=== PATIENT | female | born 1945 | race Caucasian/White ===

== ENCOUNTER 2017-09-02 22:13 | Emergency (ER) | payer OTHER ==
[2017-09-03] MEDS ORDERED: IBUPROFEN 400 MG TAB ONE (00:06)
[2017-09-03] MEDS ORDERED: ALBUTEROL 2.5 MG/3 ML NEB SOL ONE (00:06)
[2017-09-03] MEDS ORDERED: ACETAMINOPHEN 500 MG TAB ONE (00:06)
[2017-09-03] MEDS ORDERED: IBUPROFEN 200 MG TAB PO ONE (00:06)
[2017-09-03 01:10] LABS: Absolute Lymphocytes (CBC) 2.3 K/uL (0.7-4.9); Absolute Monocytes 0.6 K/uL (0.1-1.3); Absolute Neutrophil 7.3 K/uL (1.8-8.0); Basophils % 0.5 % (0-1.3); Eosinophils % 1.7 % (0-4.4); Hematocrit 40.5 % (36.0-45.0); Lymphocytes % 21.8 % (15.3-44.8); MCH 29.7 pg (27.0-35.0); MCV 90.3 fL (80-100); MPV 9.2 fL (7.6-11.3); Monocytes % 5.6 % (3.3-12.3); RBC Red Blood Cell Count 4.49 M/uL (3.86-4.86)
[2017-09-03 01:20] LABS: Potassium 3.8 mmol/L (3.5-5.1)
--- NOTE | 2017-09-03 02:49 | EDPHYS ---
Physician Documentation [facility] Name: Su Schaeffer Age: 71 yrs Sex: Female : 1945 Arrival Date: 09/02/2017 Time: 22:17 Bed 17 Private MD: Segun Potts ED Physician Davi Jack HPI: 09/03 11:27 This 71 yrs old Unknown Female presents to ER via Ambulatory with complaints of Fall wa Injury. 11:27 Details of fall: The patient fell from a height. Onset: The symptoms/episode wa began/occurred just prior to arrival. Associated injuries: The patient sustained injury to the head, R wrist and tailbone. Severity of symptoms: At their worst the symptoms were moderate, in the emergency department the symptoms are unchanged. The patient has not experienced similar symptoms in the past. The patient has not recently seen a physician. states felt a bit woozy when hit head with associated nausea. admit to mild BAR since then. Historical: - Allergies: 09/02 22:46 PENICILLINS; fc 22:46 Erythromycin; fc 22:46 hydrocodone; fc 22:46 Ultram; fc - Home Meds: 22:46 Tylenol-Codeine #4 300-60 mg Oral tab 1 tab as needed [Active]; Celebrex 200 mg Oral fc cap 1 cap once daily [Active]; Flexeril 5 mg Oral tab 1 tab as needed [Active]; lisinopril 10 mg Oral tab 1 tab once daily [Active]; - PMHx: 22:46 pain to both feet; Hypertension; fc - PSHx: 22:46 foot surg; fc - Immunization history:: Last tetanus immunization: < 10 years ago. - Social history:: Smoking status: Patient/guardian denies using tobacco. - Ebola Screening: : Patient negative for fever greater than or equal to 101.5 degrees Fahrenheit, and additional compatible Ebola Virus Disease symptoms Patient denies exposure to infectious person Patient denies travel to an Ebola-affected area in the 21 days before illness onset. - Family history:: not pertinent. - Hospitalizations: : No recent hospitalization is reported. ROS: 09/03 11:31 Constitutional: Negative for fever, chills, and weight loss, Eyes: Negative for injury, wa pain, redness, and discharge, ENT: Negative for injury, pain, and discharge, Cardiovascular: Negative for chest pain, palpitations, and edema, Respiratory: Negative for shortness of breath, cough, wheezing, and pleuritic chest pain, Abdomen/GI: Negative for abdominal pain, nausea, vomiting, diarrhea, and constipation, Skin: Negative for injury, rash, and discoloration, Neuro: Negative for headache, weakness, numbness, tingling, and seizure. Neck: Positive for pain with movement. Back: Positive for pain at rest, of the sacrum. MS/extremity: Positive for pain, swelling, tenderness, of the right wrist. All other systems are negative. Exam: 11:28 Constitutional: This is a well developed, well nourished patient who is awake, alert, wa and in no acute distress. Eyes: Pupils equal round and reactive to light, extra-ocular motions intact. Lids and lashes normal. Conjunctiva and sclera are non-icteric and not injected. Cornea within normal limits. Periorbital areas with no swelling, redness, or edema. ENT: Nares patent. No nasal discharge, no septal abnormalities noted. Tympanic membranes are normal and external auditory canals are clear. Oropharynx with no redness, swelling, or masses, exudates, or evidence of obstruction, uvula midline. Mucous membranes moist. Chest/axilla: Normal chest wall appearance and motion. Nontender with no deformity. No lesions are appreciated. Cardiovascular: Regular rate and rhythm with a normal S1 and S2. No gallops, murmurs, or rubs. Normal PMI, no JVD. No pulse deficits. Respiratory: Lungs have equal breath sounds bilaterally, clear to auscultation and percussion. No rales, rhonchi or wheezes noted. No increased work of breathing, no retractions or nasal flaring. Abdomen/GI: Soft, non-tender, with normal bowel sounds. No distension or tympany. No guarding or rebound. No evidence of tenderness throughout. Skin: Warm, dry with normal turgor. Normal color with no rashes, no lesions, and no evidence of cellulitis. Neuro: Awake and alert, GCS 15, oriented to person, place, time, and situation. Cranial nerves II-XII grossly intact. Motor strength 5/5 in all extremities. Sensory grossly intact. Cerebellar exam normal. Normal gait. Psych: Awake, alert, with orientation to person, place and time. Behavior, mood, and affect are within normal limits. 11:28 Head/face: Noted is swelling, tenderness, that is mild, of the posterior head. 11:28 Neck: External neck: is normal, Trachea: is midline with no obvious abnormalities, ROM/movement: is normal, mild diffuse tenderness. no step-offs. 11:28 Back: pain, that is moderate, of the sacrum, ROM is normal. 11:28 Musculoskeletal/extremity: Extremities: swelling, tenderness, R wrist. Vital Signs: 09/02 22:46 BP 148 / 77; Pulse 100; Resp 20; Temp 98.8(O); Pulse Ox 98% on R/A; Weight 81.65 kg fc (R); Height 5 ft. 6 in. (167.64 cm) (R); Pain 8/10; 23:46 BP 135 / 83; Pulse 90; Resp 17; Pulse Ox 100% on R/A; bs1 09/03 00:46 BP 128 / 88; Pulse 80; Resp 16; Pulse Ox 99% on R/A; bs1 01:46 BP 113 / 67; Pulse 81; Resp 16; Pulse Ox 100% on R/A; bs1 02:46 BP 136 / 82; Pulse 80; Resp 17; Temp 98(O); Pulse Ox 100% on R/A; Pain 0/10; bs1 09/02 22:46 Body Mass Index 29.05 (81.65 kg, 167.64 cm) fc MDM: 09/02 23:40 Patient medically screened. mi 09/03 11:32 Differential diagnosis: closed head injury, contusion, fracture, multiple trauma, wa sprain, strain. Data reviewed: vital signs, nurses notes, radiologic studies. Test interpretation: by ED physician or midlevel provider: head and c-spine CT neg. pelvic xray negative. CXR neg. R wrist xray: positive for distal radius fx. Response to treatment: the patient's symptoms have markedly improved after treatment. ED course: of note pt c/o cough x 2 weeks that is worsening. nebs given. CXR nml. given inhaler, steroid burst and z-pack. 09/02 23:55 Order name: Basic Metabolic Panel; Complete Time: 02:43 mi 09/02 23:55 Order name: CBC with Diff; Complete Time: 02:43 mi 09/02 22:50 Order name: Forearm Right XRAY fc 09/02 23:55 Order name: CT Head C Spine mi 09/02 23:55 Order name: Creatinine for Radiology; Complete Time: 02:43 mi 09/02 23:55 Order name: Type And Screen; Complete Time: 02:43 mi 09/02 23:55 Order name: XRAY Pelvis mi 09/02 23:55 Order name: XRAY Chest (1 view) mi 09/02 23:55 Order name: Labs collected and sent; Complete Time: 01:00 mi 09/02 23:55 Order name: Splint - Sugar Tong - Forearm: R; Complete Time: 00:16 mi Administered Medications: 00:09 Drug: Motrin 600 mg Route: PO; bs1 00:50 Follow up: Response: No adverse reaction bs1 00:09 Drug: Tylenol 1000 mg Route: PO; bs1 00:50 Follow up: Response: No adverse reaction bs1 00:09 Drug: Albuterol 2.5 mg Route: Inhalation; bs1 Disposition: 09/03/17 02:48 Discharged to Home. Impression: Right Distal Radius Fracture, Acute Bronchitis, Tail bone sprain. - Condition is Stable. - Discharge Instructions: Acute Bronchitis, [id number], Wrist Fracture, [id number]. - Prescriptions for Cipro 500 mg Oral Tablet - take 1 tablet by ORAL route every 12 hours for 5 days; 10 tablet. Prednisone 20 mg Oral Tablet - take 2 tablet by ORAL route once daily for 5 days; 10 tablet. Albuterol Sulfate 90 mcg/actuation - inhale 1-2 puff by INHALATION route every 4-6 hours; 1 Inhaler. Ibuprofen 600 mg Oral Tablet - take 1 tablet by ORAL route every 8 hours As needed take with food; 30 tablet. - Medication Reconciliation Form, Thank You Letter, Antibiotic Education, Prescription Opioid Use form. - Follow up: Esteban Campbell MD; When: 5 - 6 days; Reason: Re-evaluation by your physician. - Problem is new. - Symptoms have improved. - Notes: follow up with the orhtopedic surgeon for further treatment of your wrist fracture Signatures: Dispatcher [employer] Eileen Shell RN RN Davi Jack MD MD wa Salazar, Brittany RN RN bs1 Corrections: (The following items were deleted from the chart) 03:39 02:48 09/03/2017 02:48 Discharged to Home. Impression: Right Distal Radius Fracture; bs1 Acute Bronchitis; Tail bone sprain. Condition is Stable. Forms are Medication Reconciliation Form, Thank You Letter, Antibiotic Education, Prescription Opioid Use. Follow up: Esteban Campbell; When: 5 - 6 days; Reason: Re-evaluation by your physician. Problem is new. Symptoms have improved. wa
--- NOTE | 2017-09-03 02:49 | ER ---
Nurse's Notes [facility] Name: Su Schaeffer Age: 71 yrs Sex: Female : 1945 Arrival Date: 09/02/2017 Time: 22:17 Bed 17 Private MD: Segun Potts Diagnosis: Right Distal Radius Fracture;Acute Bronchitis;Tail bone sprain Presentation: 09/02 22:40 Presenting complaint: Patient states: that there was a slick spot on the floor and she fc slipped. When she did she hit her head on table, tailbone and right arm. At the time was somewhat confused and nausea. Denies any LOC. Care prior to arrival: None. Mechanism of Injury: Fall from standing position. Trauma event details: [facility], Injury occurred: at home. Injury occurred: September 02, 2017 Injury occurred at: 21:30. 22:40 Acuity: WILL 3 fc 22:40 Method Of Arrival: Ambulatory fc 22:42 Transition of care: patient was not received from another setting of care. Onset of fc symptoms was September 02, 2017 at 21:30. Risk Assessment: Do you want to hurt yourself or someone else? Patient reports no desire to harm self or others. 09/03 03:38 Initial Sepsis Screen: Does the patient meet any 2 criteria? No. Patient's initial bs1 sepsis screen is negative. Does the patient have a suspected source of infection? No. Patient's initial sepsis screen is negative. Triage Assessment: 09/02 22:50 General: Appears uncomfortable, well groomed, Behavior is calm, cooperative, fc appropriate for age. Pain: Complains of pain in buttocks, right arm and neck Pain currently is 8 out of 10 on a pain scale. Quality of pain is described as aching, dull, Pain began suddenly, Is continuous, Aggravated by increased activity, repositioning, weight bearing. EENT: No deficits noted. 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 Cardiovascular: No deficits noted. Respiratory: No deficits noted. GI: No deficits noted. : No deficits noted. Derm: Skin is pink, warm \\T\\ dry. Musculoskeletal: Capillary refill < 3 seconds, Range of motion: limited in right elbow and right wrist Reports pain in buttocks and right arm. Historical: - Allergies: 22:46 PENICILLINS; fc 22:46 Erythromycin; fc 22:46 hydrocodone; fc 22:46 Ultram; fc - Home Meds: 22:46 Tylenol-Codeine #4 300-60 mg Oral tab 1 tab as needed [Active]; Celebrex 200 mg Oral fc cap 1 cap once daily [Active]; Flexeril 5 mg Oral tab 1 tab as needed [Active]; lisinopril 10 mg Oral tab 1 tab once daily [Active]; - PMHx: 22:46 pain to both feet; Hypertension; fc - PSHx: 22:46 foot surg; fc - Immunization history:: Last tetanus immunization: < 10 years ago. - Social history:: Smoking status: Patient/guardian denies using tobacco. - Ebola Screening: : Patient negative for fever greater than or equal to 101.5 degrees Fahrenheit, and additional compatible Ebola Virus Disease symptoms Patient denies exposure to infectious person Patient denies travel to an Ebola-affected area in the 21 days before illness onset. - Family history:: not pertinent. - Hospitalizations: : No recent hospitalization is reported. Screenin:51 Abuse screen: Denies threats or abuse. Nutritional screening: No deficits noted. Tuberculosis screening: No symptoms or risk factors identified. Fall Risk Fall in past 12 months (25 points). No secondary diagnosis (0 pts). No IV (0 pts). Ambulatory Aid- None/Bed Rest/Nurse Assist (0 pts). Gait- Weak (10 pts.). Mental Status- Overestimates/Forgets Limitations (15 pts.). Total Sauer Fall Scale indicates Low Risk Score (25-44 pts). Fall prevention measures have been instituted. Side Rails Up X 2 Placed close to Nursing Station Frequent Obs/Assesments occuring Family Present and informed to notify staff if they need to leave bedside As available Patient and Family Educated on Fall Prevention Program and strategies. Assessment: 22:50 General: Appears in no apparent distress. uncomfortable, Behavior is cooperative, bs1 anxious. Pain: Complains of pain in right wrist and right elbow and neck and right arm and buttocks, tailbone Pain does not radiate. Neuro: Level of Consciousness is awake, alert, obeys commands, Oriented to person, place, time, situation, Appropriate for age Denies blurred vision difficulty swallowing, headache. Cardiovascular: Denies chest pain, shortness of breath, Heart tones S1 S2 present Capillary refill < 3 seconds Patient's skin is warm and dry. Respiratory: Airway is patent Trachea midline Respiratory effort is even, unlabored, Respiratory pattern is regular, symmetrical, Breath sounds are clear bilaterally. GI: No signs and/or symptoms were reported involving the gastrointestinal system. : No signs and/or symptoms were reported regarding the genitourinary system. EENT: No signs and/or symptoms were reported regarding the EENT system. Derm: Skin is intact, Skin is pink, warm \\T\\ dry. normal. Musculoskeletal: Circulation, motion, and sensation intact. Capillary refill < 3 seconds, Reports pain in right wrist and right elbow and neck and right arm and buttocks, tailbone. 09/03 00:00 Reassessment: Patient appears in no apparent distress at this time. Patient and/or bs1 family updated on plan of care and expected duration. Pain level reassessed. Patient is alert, oriented x 3, equal unlabored respirations, skin warm/dry/pink. 02:00 Reassessment: Patient appears in no apparent distress at this time. No changes from bs1 previously documented assessment. Patient and/or family updated on plan of care and expected duration. Pain level reassessed. Patient is alert, oriented x 3, equal unlabored respirations, skin warm/dry/pink. 03:15 Reassessment: Patient appears in no apparent distress at this time. Patient and/or bs1 family updated on plan of care and expected duration. Pain level reassessed. Patient is alert, oriented x 3, equal unlabored respirations, skin warm/dry/pink. Neurovascular checks wnl. Patient states feeling better. Patient states symptoms have improved. Vital Signs: 09/02 22:46 BP 148 / 77; Pulse 100; Resp 20; Temp 98.8(O); Pulse Ox 98% on R/A; Weight 81.65 kg fc (R); Height 5 ft. 6 in. (167.64 cm) (R); Pain 8/10; 23:46 BP 135 / 83; Pulse 90; Resp 17; Pulse Ox 100% on R/A; bs1 09/03 00:46 BP 128 / 88; Pulse 80; Resp 16; Pulse Ox 99% on R/A; bs1 01:46 BP 113 / 67; Pulse 81; Resp 16; Pulse Ox 100% on R/A; bs1 02:46 BP 136 / 82; Pulse 80; Resp 17; Temp 98(O); Pulse Ox 100% on R/A; Pain 0/10; bs1 09/02 22:46 Body Mass Index 29.05 (81.65 kg, 167.64 cm) ED Course: 09/02 22:17 Patient arrived in ED. es 22:17 Segun Potts MD is Private Physician. es 22:42 Triage completed. fc 22:46 Arm band placed on Patient placed in an exam room, on a stretcher. fc 22:51 Patient has correct armband on for positive identification. Bed in low position. Call light in reach. 23:04 X-ray completed. Portable x-ray completed in exam room. Patient tolerated procedure jw2 well. 23:05 Forearm Right XRAY In Process Unspecified. EDMS 23:21 Nishi Vazquez, MONTSE is Primary Nurse. bs1 23:40 Davi Jack MD is Attending Physician. wa 09/03 00:15 Orthoglass splint: Sugar tong splint applied on right arm. Used 3" Orthoglass splinting ks6 wrapped with two melina bandages. CMS present after splinting. 00:25 X-ray completed. Portable x-ray completed in exam room. Patient tolerated procedure jw2 well. 00:26 XRAY Pelvis In Process Unspecified. EDMS 00:26 XRAY Chest (1 view) In Process Unspecified. EDMS 00:[address] via wheelchair. kw1 00:41 CT Head C Spine In Process Unspecified. EDMS 00:41 CT completed. Patient tolerated procedure well. Patient moved back from CT. kw1 01:00 Initial lab(s) drawn, by me, sent to lab. Inserted saline lock: 22 gauge in left ks6 antecubital area, using aseptic technique. Blood collected. 02:47 Esteban Campbell MD is Referral Physician. wa 03:37 No provider procedures requiring assistance completed. IV discontinued, bleeding bs1 controlled, No redness/swelling at site. Pressure dressing applied. Administered Medications: 00:09 Drug: Motrin 600 mg Route: PO; bs1 00:50 Follow up: Response: No adverse reaction bs1 00:09 Drug: Tylenol 1000 mg Route: PO; bs1 00:50 Follow up: Response: No adverse reaction bs1 00:09 Drug: Albuterol 2.5 mg Route: Inhalation; bs1 Outcome: 02:48 Discharge ordered by . julissa 03:38 Discharged to home ambulatory. bs1 03:38 Condition: stable 03:38 Discharge instructions given to patient, Instructed on discharge instructions, follow up and referral plans. medication usage, Demonstrated understanding of instructions, follow-up care, medications, Prescriptions given X 4. 03:39 Patient left the ED. bs1 Signatures: Dispatcher [employer] Rachel Curtis Felicia, RN RN Linda Radford jw2 Davi Jack MD MD wa Wilhelm, Kimberly kw1 Nishi Vazquez RN RN bs1 Jason Armstrong ks6 Corrections: (The following items were deleted from the chart) 03:39 03:39 BP 136 / 82; Pulse 80bpm; Resp 17bpm; Pulse Ox 100% RA; Temp 98F Oral; Pain 0/10; bs1 bs1
--- NOTE | 2017-09-03 08:39 | RAD REPORT ---
EXAM DESCRIPTION: RAD - Forearm Right - 09/02/2017 11:04 pm CLINICAL HISTORY: Slip and fall, arm pain COMPARISON: None. FINDINGS: No fracture at the elbow joint identifiable. No elevated posterior fat pad. An oblique fra cture is present through the ulna styloid. No distraction or angulation deformity. Ulna styloid fract ure is not suspected. Patient has advanced degenerative change at the trapezium first metacarpal hu culation. There is joint space narrowing, sclerosis and spurring changes. There is bony remodeling wi th increased concavity to the trapezium. There is no dislocation or periosteal reaction noted. No foreign body or other soft tissue abnormality. IMPRESSION: Oblique fracture through the radial styloid creating a 10-12 millimeter sized fracture f ragment. No distraction or angulation.
--- NOTE | 2017-09-03 09:25 | RAD REPORT ---
EXAM DESCRIPTION: CT - [id number] - 09/03/2017 2:57 am CLINICAL HISTORY: Fall, head and neck injury, headache and neck pain A preliminary written report was provided at the time of the study, and the report was reviewed prio r to final dictation. COMPARISON: None. TECHNIQUE: Axial 5 mm thick images of the head were obtained. Axial 2 mm thick images of the cervic al spine were obtained with sagittal and coronal reconstruction images generated and reviewed. All CT scans are performed using dose optimization technique as appropriate and may include automated exposure control or mA/KV adjustment according to patient size. FINDINGS: No intracranial hemorrhage, mass, edema or acute intracranial finding. No acute cortical b ased infarction. Patient has minimal atrophy and chronic ischemic change. Ventricles are normal. No e xtra-axial fluid collections. Mastoid air cells and paranasal sinuses are clear. No globe or orbit ab normality seen. Cervical bodies are normal in height and AP alignment. Slight anterior subluxation of C3 on C4 from f acet degenerative change. C4-5 C5-6 and C6-7 significant disc space narrowing with endplate spurring changes. Left facet degenerative change at C3-4. C4-5 bilateral bony foraminal encroachment from face t and uncovertebral joint hypertrophy. This is present at C5-6 as well. There is posterior endplate s purring at C5-6 contributing to central spinal stenosis 8 mm or less. More pronounced endplate spurri ng at C6-7 causes spinal stenosis to 7 mm or less. Uncovertebral joint hypertrophy causes bony forami nal encroachment. No other disc space narrowing. No acute fracture changes are seen. Central canal de tail is inherently limited. No paraspinal mass or hematoma. IMPRESSION: No hemorrhage, edema or acute intracranial finding. No fracture is seen the patient has advanced cervical spine degenerative change. Foraminal stenosis a nd central spinal stenosis changes are present between C4 and C7. At C6-7 spinal stenosis is 7 mm or less and almost certainly there is significant cord flattening. Followup MR cervical spine imaging could be performed if there is neurologic clinical finding to susp ect acute cord symptoms or traumatic disc herniation.
--- NOTE | 2017-09-03 09:26 | RAD REPORT ---
EXAM DESCRIPTION: RAD - Chest Single View - 09/03/2017 12:27 am CLINICAL HISTORY: Fall, chest pain COMPARISON: None. TECHNIQUE: AP portable chest image was obtained 0022 hours . FINDINGS: Interstitial markings are prominent believed be baseline. No pulmonary contusion or acute lung parenchymal process. Heart and vasculature are normal. No measurable pleural effusion and no pne umothorax. No gross bony abnormality seen. No acute aortic findings suspected. IMPRESSION: No acute cardiopulmonary process. Patient has chronic interstitial lung disease.
--- NOTE | 2017-09-03 09:27 | RAD REPORT ---
EXAM DESCRIPTION: RAD - Pelvis - 09/03/2017 12:26 am CLINICAL HISTORY: Fall, pelvic pain COMPARISON: None. TECHNIQUE: AP imaging of the pelvis was obtained. FINDINGS: No fracture of the bony pelvis. SI joint degenerative changes are present. Lower lumbar de generative changes are present incompletely assessed. No fracture or dislocation of either proximal f emur. Hip joint degenerative changes are minimal. No suspicious soft tissue finding. IMPRESSION: No fracture or other acute finding seen.
== END 2017-09-03 03:39 | disposition home or self-care (01) ==
LOC: ER 22:13
PROC: 2W3CX1Z Immobilization of Right Lower Arm using Splint (ICD-10-PCS; principal; 2017-09-03)
DX: S52.511A Displaced fracture of right radial styloid process, initial encounter for closed fracture (principal); J20.9 Acute bronchitis, unspecified; S33.8XXA Sprain of other parts of lumbar spine and pelvis, initial encounter; W17.89XA Other fall from one level to another, initial encounter; Y93.9 Activity, unspecified; Y92.9 Unspecified place or not applicable; Z88.0 Allergy status to penicillin; Z88.3 Allergy status to other anti-infective agents; Z88.5 Allergy status to narcotic agent; Z88.8 Allergy status to other drugs, medicaments and biological substances; I10 Essential (primary) hypertension
CPT/HCPCS: 36415; 70450; 71045; 72125; 72170; 80048; 85025; 86850; 86900; 86901; 99285

== ENCOUNTER 2018-06-01 19:20 | Emergency (ER) | payer OTHER ==
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
== END 2018-06-02 01:26 | disposition home or self-care (01) ==
LOC: ER 19:20
DX: S13.4XXA Sprain of ligaments of cervical spine, initial encounter (principal); V49.40XA Driver injured in collision with unspecified motor vehicles in traffic accident, initial encounter; Z88.0 Allergy status to penicillin; Z88.3 Allergy status to other anti-infective agents; Z88.5 Allergy status to narcotic agent; Z88.8 Allergy status to other drugs, medicaments and biological substances; I10 Essential (primary) hypertension
CPT/HCPCS: 70450; 72125; 99284

== ENCOUNTER 2018-06-02 08:29 | Emergency (ER) | payer OTHER ==
[2018-06-02] MEDS ORDERED: ACETAMINOPHEN 325 MG TABLET ONE (09:44)
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
== END 2018-06-02 11:06 | disposition home or self-care (01) ==
LOC: ER 08:29
DX: S16.1XXD Strain of muscle, fascia and tendon at neck level, subsequent encounter (principal); M54.12 Radiculopathy, cervical region; I10 Essential (primary) hypertension; V49.40XD Driver injured in collision with unspecified motor vehicles in traffic accident, subsequent encounter; Z88.0 Allergy status to penicillin; Z88.3 Allergy status to other anti-infective agents; Z88.5 Allergy status to narcotic agent; Z88.8 Allergy status to other drugs, medicaments and biological substances
CPT/HCPCS: 72141; 99284

== ENCOUNTER 2018-12-01 14:23 | Emergency (ER) | payer OTHER ==
[2018-12-01] MEDS ORDERED: METHYLPREDNISOLONE 125 MG INJ ONE (15:02)
[2018-12-01] MEDS ORDERED: DIPHENHYDRAMINE 50 MG/ML VIAL ONE (15:03)
--- NOTE | 2018-12-01 15:46 | RAD REPORT ---
EXAM DESCRIPTION: US - Extrem Venous W Compress Jensen - 12/01/2018 3:32 pm CLINICAL HISTORY: Leg pain and swelling COMPARISON: None. TECHNIQUE: Real-time sonographic evaluation of the bilateral lower extremity common femoral, superfi cial femoral, popliteal and posterior tibial veins was performed. FINDINGS: Normal compressibility, flow augmentation, phasic flow and spontaneous flow are identified in the left and right lower extremity common femoral, superficial femoral, popliteal and posterior t ibial veins. No intraluminal filling defects seen. Benign-appearing nonspecific inguinal lymph nodes present. IMPRESSION: No DVT in either lower extremity.
[2018-12-01 16:40] LABS: Absolute Lymphocytes (CBC) 1.7 K/uL (0.7-4.9); Basophils % 1.1 % (0-1.3); Hematocrit 39.9 % (36.0-45.0); Lymphocytes % 27.2 % (15.3-44.8); MPV 9.3 fL (7.6-11.3); RBC Red Blood Cell Count 4.58 M/uL (3.86-4.86)
[2018-12-01 16:59] LABS: Potassium 3.8 mmol/L (3.5-5.1)
--- NOTE | 2018-12-01 17:45 | ER ---
Nurse's Notes [facility] Name: Su Schaeffer Age: 73 yrs Sex: Female : 1945 Arrival Date: 12/01/2018 Time: 14:26 Bed 28 Private MD: Segun Potts Diagnosis: Rash and other nonspecific skin eruption;Edema, not elsewhere classified Presentation: 12/01 14:35 Presenting complaint: Patient states: Swelling in both of her legs since yesterday. aj1 States that she has had a rash that started on Tuesday. States that she took a Vitamin D pill for the first time the previous day. She has been taking Benadryl but it isn't helping. She was seen at [place] and given a Rx for Zyrtec. Then she was seen at [facility] and was told to be seen at the ER for lab work to find out why her legs are swelling. Transition of care: patient was not received from another setting of care. Onset of symptoms was December 01, 2018. Risk Assessment: Do you want to hurt yourself or someone else? Patient reports no desire to harm self or others. Initial Sepsis Screen: Does the patient meet any 2 criteria? No. Patient's initial sepsis screen is negative. Does the patient have a suspected source of infection? No. Patient's initial sepsis screen is negative. Care prior to arrival: None. 14:35 Method Of Arrival: Ambulatory aj 14:35 Acuity: WILL 3 aj1 Triage Assessment: 14:42 General: Appears in no apparent distress. comfortable, Behavior is calm, cooperative, aj1 appropriate for age. Pain: Pain currently is 7 out of 10 on a pain scale. Neuro: Level of Consciousness is awake, alert, obeys commands, Oriented to person, place, time, situation. Cardiovascular: Patient's skin is warm and dry. Respiratory: Airway is patent Respiratory effort is even, unlabored, Respiratory pattern is regular, symmetrical. Historical: - Allergies: 14:42 Erythromycin; aj1 14:42 Ultram; aj1 - Home Meds: 14:42 amlodipine oral once daily [Active]; Flexeril 5 mg Oral tab 1 tab as needed [Active]; aj1 Omeprazole Oral [Active]; 14:42 Namenda oral oral [Active]; aj1 - PMHx: 14:42 Hypertension; pain to both feet; aj1 - Immunization history:: Flu vaccine is not up to date. - Social history:: Smoking status: Patient/guardian denies using tobacco. - Ebola Screening: : Patient denies travel to an Ebola-affected area in the 21 days before illness onset. - Family history:: not pertinent. - Hospitalizations: : No recent hospitalization is reported. Screenin:55 Abuse screen: Denies threats or abuse. Nutritional screening: No deficits noted. tr5 Tuberculosis screening: No symptoms or risk factors identified. Fall Risk None identified. Assessment: 14:55 General: Appears in no apparent distress. Behavior is calm, cooperative, appropriate tr5 for age. Pain: Denies pain. Neuro: Level of Consciousness is awake, alert, obeys commands, Oriented to person, place, time, situation, In Service Coordinator are equal bilaterally Moves all extremities. Gait is steady. Cardiovascular: Heart tones present Capillary refill < 3 seconds Pulses are all present. Cardiovascular: Edema is 3+ to left midcalf, left ankle, left foot, right midcalf, right ankle and right foot. Respiratory: Airway is patent Respiratory effort is even, unlabored, Respiratory pattern is regular, symmetrical. GI: No signs and/or symptoms were reported involving the gastrointestinal system. : No signs and/or symptoms were reported regarding the genitourinary system. EENT: No signs and/or symptoms were reported regarding the EENT system. Derm: Rash noted that is macular, red, on right leg and left leg. Musculoskeletal: Capillary refill < 3 seconds, Range of motion: intact in all extremities. 16:00 Reassessment: Patient appears in no apparent distress at this time. Patient and/or tr5 family updated on plan of care and expected duration. Pain level reassessed. Patient is alert, oriented x 3, equal unlabored respirations, skin warm/dry/pink. Vital Signs: 14:42 BP 159 / 87; Pulse 97; Resp 18; Temp 98.6; Pulse Ox 97% on R/A; Weight 86.18 kg (R); aj1 Pain 7/10; 15:45 BP 148 / 89; Pulse 72; Resp 16; Pulse Ox 100% on R/A; tr5 16:32 BP 133 / 69; Pulse 73; Resp 17; Pulse Ox 100% on R/A; tr5 ED Course: 14:26 Patient arrived in ED. mr 14:26 Segun Potts MD is Private Physician. mr 14:40 Triage completed. aj1 14:42 Arm band placed on Patient placed in an exam room. aj1 14:47 Graham Fernandez MD is Attending Physician. rn 14:54 Luis Alberto Sawant, MONTSE is Primary Nurse. tr5 14:55 Placed in gown. Bed in low position. Call light in reach. Pulse ox on. NIBP on. tr5 15:05 Patient taken to ultrasound. tr5 15:30 Ultrasound completed. Patient moved back from ultrasound. lc3 15:31 Extrem Venous W Compression Jensen US In Process Unspecified. EDMS 15:40 Inserted saline lock: 22 gauge in left antecubital area, using aseptic technique. tr5 15:45 Initial lab(s) drawn, by me, sent to lab. tr5 17:54 No provider procedures requiring assistance completed. IV discontinued. tr5 Administered Medications: 15:50 Drug: Benadryl 25 mg Route: IVP; Site: left antecubital; tr5 21:48 Follow up: Response: No adverse reaction tr5 15:51 Drug: SOLU-Medrol 125 mg Route: IVP; Site: left antecubital; tr5 21:48 Follow up: Response: No adverse reaction tr5 Outcome: 17:40 Discharge ordered by . rn 17:54 Discharged to home ambulatory. tr5 17:54 Condition: stable 17:54 Discharge instructions given to patient, Instructed on discharge instructions, follow up and referral plans. medication usage, Demonstrated understanding of instructions, follow-up care, medications. 17:57 Patient left the ED. tr5 Signatures: Dispatcher [employer] EDMS Candi Newman, RN RN shaneka ManuelDarshana mr Graham Fernandez MD MD rn Cunningham, Laulita lc3 Rodriguez, Tommie, RN RN tr5
--- NOTE | 2018-12-01 17:47 | EDPHYS ---
Physician Documentation [facility] Name: Su Schaeffer Age: 73 yrs Sex: Female : 1945 Arrival Date: 12/01/2018 Time: 14:26 Bed 28 Private MD: Segun Potts ED Physician Graham Fernandez HPI: 12/01 17:30 This 73 yrs old Female presents to ER via Ambulatory with complaints of Rash, rn Leg Swelling, Feet Swelling. 17:30 The patient's rash thought to be caused by an unknown cause. The rash is located on the rn body diffusely. The rash can be described as erythematous, urticarial. 17:30 Onset: The symptoms/episode began/occurred yesterday. Severity of symptoms: At their rn worst the symptoms were mild in the emergency department the symptoms are unchanged. The patient has not experienced similar symptoms in the past. Reports rash and leg swelling that began yesterday, no new medication other than vitamin D pill, reports itchy, no trouble breathing. Also reports leg swelling that hasn't happened before. No sob/chest pain. . Historical: - Allergies: 14:42 Erythromycin; aj1 14:42 Ultram; aj1 - Home Meds: 14:42 amlodipine oral once daily [Active]; Flexeril 5 mg Oral tab 1 tab as needed [Active]; aj1 Omeprazole Oral [Active]; 14:42 Namenda oral oral [Active]; aj1 - PMHx: 14:42 Hypertension; pain to both feet; aj1 - Immunization history:: Flu vaccine is not up to date. - Social history:: Smoking status: Patient/guardian denies using tobacco. - Ebola Screening: : Patient denies travel to an Ebola-affected area in the 21 days before illness onset. - Family history:: not pertinent. - Hospitalizations: : No recent hospitalization is reported. ROS: 17:30 Constitutional: Negative for fever, chills, and weight loss, Eyes: Negative for injury, rn pain, redness, and discharge, Neck: Negative for injury, pain, and swelling, Cardiovascular: Negative for chest pain, palpitations Respiratory: Negative for shortness of breath, cough, wheezing, and pleuritic chest pain, Abdomen/GI: Negative for abdominal pain, nausea, vomiting, diarrhea, and constipation, MS/Extremity: + swelling of legs Skin: + rash Neuro: Negative for headache, weakness, numbness, tingling, and seizure. Exam: 17:30 Constitutional: This is a well developed, well nourished patient who is awake, alert, rn and in no acute distress. Ambulatory to room without difficulty or distress Head/Face: Normocephalic, atraumatic. Eyes: Pupils equal round and reactive to light, extra-ocular motions intact. Lids and lashes normal. Conjunctiva and sclera are non-icteric and not injected. Cornea within normal limits. Periorbital areas with no swelling, redness, or edema. ENT: No oral swelling or lesions Cardiovascular: Regular rate and rhythm. No pulse deficits. Respiratory: No increased work of breathing, no retractions or nasal flaring. Skin: Warm, dry, + raised, palpable erythematous rash to anterior tibial and both inner arms, no bullae MS/ Extremity: Pulses equal, no cyanosis. Neurovascular intact. Full, normal range of motion. Equal circumference. 1+ pitting edema bilateral lower ext Neuro: Awake and alert, GCS 15, oriented to person, place, time, and situation. Cranial nerves II-XII grossly intact. Motor strength 5/5 in all extremities. Sensory grossly intact. Cerebellar exam normal. Normal gait. Vital Signs: 14:42 BP 159 / 87; Pulse 97; Resp 18; Temp 98.6; Pulse Ox 97% on R/A; Weight 86.18 kg (R); aj1 Pain 7/10; 15:45 BP 148 / 89; Pulse 72; Resp 16; Pulse Ox 100% on R/A; tr5 16:32 BP 133 / 69; Pulse 73; Resp 17; Pulse Ox 100% on R/A; tr5 MDM: 14:47 Patient medically screened. rn 17:30 Differential diagnosis: allergic reaction, edema from amlodipine. Data reviewed: vital rn signs, nurses notes, lab test result(s), radiologic studies, plain films, and as a result, I will discharge patient. Counseling: I had a detailed discussion with the patient and/or guardian regarding: the historical points, exam findings, and any diagnostic results supporting the discharge/admit diagnosis, lab results, radiology results, the need for outpatient follow up, to return to the emergency department if symptoms worsen or persist or if there are any questions or concerns that arise at home. Special discussion: I discussed with the patient/guardian in detail that at this point there is no indication for admission to the hospital. It is understood, however, that if the symptoms persist or worsen the patient needs to return immediately for re-evaluation. ED course: Ultrasound negative for acute findings, normal renal and cardiac function. Rash unclear but edema likely amlodipine, patient states would rather change meds, and will f/u with pcp for this.. 12/01 14:57 Order name: CBC with Diff; Complete Time: 17:17 rn 12/01 14:57 Order name: Basic Metabolic Panel; Complete Time: 17:17 rn 12/01 14:57 Order name: N-Terminal Pro-brain Natriuretic Peptide; Complete Time: 17:17 rn 12/01 14:58 Order name: Extrem Venous W Compression Jensen US; Complete Time: 16:05 rn 12/01 14:57 Order name: IV Start; Complete Time: 15:50 rn Administered Medications: 15:50 Drug: Benadryl 25 mg Route: IVP; Site: left antecubital; tr5 21:48 Follow up: Response: No adverse reaction tr5 15:51 Drug: SOLU-Medrol 125 mg Route: IVP; Site: left antecubital; tr5 21:48 Follow up: Response: No adverse reaction tr5 Disposition: 12/01/18 17:40 Discharged to Home. Impression: Rash and other nonspecific skin eruption, Edema, not elsewhere classified. - Condition is Stable. - Discharge Instructions: Edema, Rash, Peripheral Edema. - Prescriptions for Prednisone 20 mg Oral Tablet - take 3 tablet by ORAL route once daily for 5 days; 15 tablet. - Medication Reconciliation Form, Thank You Letter, Antibiotic Education, Prescription Opioid Use form. - Follow up: Private Physician; When: As needed; Reason: Recheck today's complaints, Re-evaluation by your physician. - Problem is new. - Symptoms have improved. Signatures: Dispatcher [employer] EDCandi Baker RN RN aj1 Graham Fernandez MD MD rn Rodriguez, Tommie, RN RN tr5 Corrections: (The following items were deleted from the chart) 17:57 17:40 12/01/2018 17:40 Discharged to Home. Impression: Rash and other nonspecific skin tr5 eruption; Edema, not elsewhere classified. Condition is Stable. Forms are Medication Reconciliation Form, Thank You Letter, Antibiotic Education, Prescription Opioid Use. Follow up: Private Physician; When: As needed; Reason: Recheck today's complaints, Re-evaluation by your physician. Problem is new. Symptoms have improved. rn
[2018-12-01 18:43] VITALS: TEMP 98.6
[2018-12-01 18:45] VITALS: O2SAT 100
[2018-12-01 18:46] VITALS: BP 133/69
== END 2018-12-01 17:57 | disposition home or self-care (01) ==
LOC: ER 14:23
DX: R21 Rash and other nonspecific skin eruption (principal); R60.9 Edema, unspecified; I10 Essential (primary) hypertension; Z88.3 Allergy status to other anti-infective agents
CPT/HCPCS: 85025; 80048; 36415; 83880; 93970; 96375; 96374; 99284; J2930